=== PATIENT | female | born 1965 | race Caucasian/White ===

== ENCOUNTER 2021-11-27 18:04 | Observation (INO) | payer BC, OTHER ==
[2021-11-27] MEDS ORDERED: ASPIRIN 81 MG CHEWABLE TABLETS PO ONE (18:13)
[2021-11-27] MEDS ORDERED: ASPIRIN 81 MG CHEWABLE TABLETS ONE (18:27)
[2021-11-27 18:59] LABS: HEMATOCRIT 45.4 % (32.4-45.2); MCH 35.3 pg (25.7-33.7); MCHC 35.3 g/dl (32.0-36.0); MEAN CELL VOLUME 99.9 fl (80-96); MEAN PLT VOLUME 8.5 fl (7.5-11.1); PLATELET COUNT 198.1 10^3/uL (134-434); RBC 4.54 10^6/uL (3.60-5.2); RDW 13.5 % (11.6-15.6); WHITE BLOOD COUNT 8.5 10^3/uL (4.0-10.8)
[2021-11-27 19:06] LABS: ALBUMIN 4.5 g/dl (3.4-5.0); BILIRUBIN,TOTAL 0.6 mg/dl (0.2-1); CALCIUM 9.4 mg/dl (8.5-10); CREATININE 0.8 mg/dl (0.55-1.3); TOT PROT 7.1 g/dl (6.4-8.2)
[2021-11-27 19:16] LABS: PLATELET ESTIMATE ADEQUATE
[2021-11-27] MEDS ORDERED: DOCUSATE SODIUM 100 MG CAPSULE (FP) PO PRN (21:41)
[2021-11-27] MEDS ORDERED: ACETAMINOPHEN 325 MG TABLET (FP) PO PRN (21:41)
[2021-11-27] MEDS ORDERED: MAG HYDROX/AL HYDROX/SIMETH 30 ML UNIT-DOSE CUP PO ONE (21:43)
[2021-11-27] MEDS ORDERED: FAMOTIDINE 20 MG/50 ML IVPB 20 MG/50 ML MG IVPB ONE (21:43)
[2021-11-27] MEDS ORDERED: SODIUM CHLORIDE 500 ML IV STA (21:44)
[2021-11-27] MEDS ORDERED: FAMOTIDINE 20 MG TABLET PO ONE (21:44)
[2021-11-27] MEDS ORDERED: FAMOTIDINE 20 MG TABLET ONE ×2 (21:45→21:49)
[2021-11-27] MEDS ORDERED: MAG HYDROX/AL HYDROX/SIMETH 30 ML UNIT-DOSE CUP ONE (21:46)
[2021-11-27 21:56] LABS: MAGNESIUM 2.2 mg/dL (1.8-2.4)
[2021-11-27 22:53] VITALS: BMI 21.4
[2021-11-27] MEDS ORDERED: metoPROLOL SUCCINATE 25 MG TAB.SR.24H (FP) PO SCH (23:01)
[2021-11-27] MEDS ORDERED: ATORVASTATIN CA 20 MG TABLET (FP) PO SCH (23:01)
[2021-11-28 08:32] LABS: CALCIUM 8.8 mg/dl (8.5-10); CREATININE 0.8 mg/dl (0.55-1.3)
[2021-11-28 08:39] LABS: ACTIVATED PTT 28.9 SECONDS (25.2-36.5); INR 0.98 (0.83-1.09); PROTHROMBIN TIME (PATIENT) 11.3 SEC (9.7-13.0)
[2021-11-28 09:02] LABS: HEMATOCRIT 40.5 % (32.4-45.2); HEMOGLOBIN 14.3 G/dL (10.7-15.3); MCH 34.8 pg (25.7-33.7); MCHC 35.2 g/dl (32.0-36.0); MEAN CELL VOLUME 98.8 fl (80-96); MEAN PLT VOLUME 8.7 fl (7.5-11.1); RDW 13.6 % (11.6-15.6)
[2021-11-28 09:03] LABS: CHOLESTEROL 178 mg/dl (50-200); HDL CHOLESTEROL 51 mg/dl (40-60); LDL CHOLESTEROL (ONLY DFH) 79 mg/dl (5-100); TRIGLYCERIDES 239 mg/dl (0-150)
[2021-11-28] MEDS ORDERED: ASPIRIN COATED 81 MG TABLET.EC PO SCH (10:00)
[2021-11-28 10:46] VITALS: BP 138/63; PULSE 70; RESP 16; TEMP 98.4
== END 2021-11-28 13:00 | disposition home or self-care (01) ==
LOC: FER 18:04 → FM/S 21:35
PROVIDERS: ADMIT Internal Medicine; ATTEND Nurse Practitioner Family
DX: I25.10 Atherosclerotic heart disease of native coronary artery without angina pectoris (principal); J45.909 Unspecified asthma, uncomplicated; E86.0 Dehydration; R07.9 Chest pain, unspecified; Z29.8 Encounter for other specified prophylactic measures; F17.210 Nicotine dependence, cigarettes, uncomplicated
CPT/HCPCS: 36415; 71046-TC-FY; 80048; 80053; 80061; 83735; 84443; 84484; 85027; 85610; 85730; 93005; 99285-25; C9803-CS; G0378; U0003; U0005

== ENCOUNTER 2022-05-10 00:43 | Emergency (ER) | payer BC ==
[2022-05-10 00:53] VITALS: BP 152/86; PULSE 90; RESP 18; TEMP 98; BMI 21.0
[2022-05-10] MEDS ORDERED: DIPHTH,PERTUSS(ACELL),TET 0.5 ML DISP.SYRIN IM ONE ×2 (00:54→00:55)
== END 2022-05-10 01:04 | disposition home or self-care (01) ==
LOC: FER 00:43
PROC: 0HQ1XZZ Repair Face Skin, External Approach (ICD-10-PCS; principal; 2022-05-10)
PROC: 3E0234Z Introduction of Serum, Toxoid and Vaccine into Muscle, Percutaneous Approach (ICD-10-PCS; 2022-05-10)
DX: S01.81XA Laceration without foreign body of other part of head, initial encounter (principal); W01.0XXA Fall on same level from slipping, tripping and stumbling without subsequent striking against object, initial encounter
CPT/HCPCS: 90715; 99282-25